=== PATIENT | female | born 1960 | race Caucasian/White ===

== ENCOUNTER → 2017-01-20 | Outpatient (CLI) | payer OTHER | LOC: RAD 14:26 | DX: M79.642 Pain in left hand (principal) | CPT/HCPCS: 73130 ==

== ENCOUNTER → 2017-07-10 | Outpatient (CLI) | payer OTHER | LOC: RT 15:37 | DX: I10 Essential (primary) hypertension (principal) | CPT/HCPCS: 94060 ==

== ENCOUNTER 2021-03-02 19:53 | Emergency (ER) | payer MEDICARE, OTHER ==
[~2021-03-02 19:53] MED LIST: ALPRAZOLAM0.5 MG PO; BENTYL 20MG TAB20 MG PO; LIDOCAINE PATCH 5% TOP; NORVASC 5 MG TAB5 MG PO; PERCOCET 10-321 EACH PO; PROTONIX40 MG PO; VENTOLIN HFA 66.7 GM INH; VITAMIN D250000 UNIT PO; ZANTAC150 MG PO
[2021-03-03] MEDS ORDERED: MOTION RELIEF25 MG PO (20:48)
[2021-03-03] MEDS ORDERED: CYCLOBENZAPRINE5 MG PO (20:48)
== END 2021-03-02 21:59 | disposition left against medical advice (07) ==
LOC: ER1 19:53
DX: Z53.21 Procedure and treatment not carried out due to patient leaving prior to being seen by health care provider (principal)

== ENCOUNTER 2021-03-03 13:46 | Emergency (ER) | payer MEDICARE, OTHER ==
[2021-03-03 14:49] LABS: HEMOGLOBIN 13.8 gm/dl (12.3-15.3); RED BLOOD COUNT 4.39 M/UL (4.00-5.10); WHITE BLOOD COUNT 9.3 K/UL (4.5-11.0)
[2021-03-03 15:14] LABS: BUN/CREATININE RATIO 8 (0-10)
[2021-03-03] MEDS ORDERED: MOTION RELIEF25 MG PO (20:48)
[2021-03-03] MEDS ORDERED: CYCLOBENZAPRINE5 MG PO (20:48)
== END 2021-03-03 21:45 | disposition home or self-care (01) ==
LOC: ER1 13:46
PROVIDERS: Physician Assistant
DX: R07.89 Other chest pain (principal); R42 Dizziness and giddiness; I10 Essential (primary) hypertension; F17.200 Nicotine dependence, unspecified, uncomplicated; Z90.710 Acquired absence of both cervix and uterus; Z88.2 Allergy status to sulfonamides; Z79.899 Other long term (current) drug therapy
CPT/HCPCS: 71046; 80053; 81001; 82550; 82553; 83874; 84484; 85025; 93005; 96372; 99284; J1885

== ENCOUNTER 2021-08-31 17:52 | Emergency (ER) | payer MEDICARE, OTHER ==
[~2021-08-31 17:52] MED LIST changes: +CYCLOBENZAPRINE5 MG PO; +MOTION RELIEF25 MG PO
[2021-08-31 19:06] LABS: HEMOGLOBIN 13.5 gm/dl (12.3-15.3); RED BLOOD COUNT 4.32 M/UL (4.00-5.10); WHITE BLOOD COUNT 10.7 K/UL (4.5-11.0)
[2021-08-31 19:36] LABS: BUN/CREATININE RATIO 14 (0-10)
== END 2021-08-31 23:00 | disposition home or self-care (01) ==
LOC: ER1 17:52
PROVIDERS: Physician Assistant
DX: R06.02 Shortness of breath (principal); R60.0 Localized edema; I51.9 Heart disease, unspecified; I11.0 Hypertensive heart disease with heart failure; F17.210 Nicotine dependence, cigarettes, uncomplicated; J45.909 Unspecified asthma, uncomplicated; Z20.822 Contact with and (suspected) exposure to COVID-19; Z90.710 Acquired absence of both cervix and uterus; Z88.2 Allergy status to sulfonamides
CPT/HCPCS: 71045; 80053; 82550; 82553; 83605; 83874; 83880; 84484; 85025; 85610; 85730; 93005; 99285; U0002

== ENCOUNTER 2021-09-22 17:28 | Emergency (ER) | payer MEDICARE, OTHER ==
[2021-09-22] MEDS ORDERED: BENADRYL 25MG C25 MG PO (18:34)
[2021-09-22] MEDS ORDERED: ELIMITE60 GM TP (18:34)
== END 2021-09-22 18:58 | disposition home or self-care (01) ==
LOC: ER1 17:28
DX: L29.9 Pruritus, unspecified (principal); F17.210 Nicotine dependence, cigarettes, uncomplicated; I10 Essential (primary) hypertension
CPT/HCPCS: 99282

== ENCOUNTER → 2022-07-27 | Outpatient (CLI) | payer OTHER, MEDICARE ==
[~2022-07-27] MED LIST changes: +BENADRYL 25MG C25 MG PO; +ELIMITE60 GM TP
== END ==
LOC: KOH-I 07-25 10:30
DX: S49.90XD Unspecified injury of shoulder and upper arm, unspecified arm, subsequent encounter (principal)
CPT/HCPCS: 73221